=== PATIENT | male | born 1950 | race Caucasian/White ===

== ENCOUNTER 2020-12-29 16:46 | Inpatient (IN) | payer MEDICARE ==
[~2020-12-29] VITALS: Ht 177.8 cm; Wt 117.5 kg
[2020-12-29 16:48] VITALS: BP 176/64
[2020-12-29] MEDS ORDERED: ABILIFY 2 MG2 M1 PO (17:03)
[2020-12-29] MEDS ORDERED: PROTONIX40 M2 PO (17:03)
[2020-12-29] MEDS ORDERED: SINGULAIR 10 MG10 MG PO (17:04)
[2020-12-29] MEDS ORDERED: ENTRESTO 24 MG1 EACH PO (17:04)
[2020-12-29] MEDS ORDERED: HYDRALAZINE 2525 MG PO (17:04)
[2020-12-29] MEDS ORDERED: LEVEMIR FL100 UNIT/2 SUBQ (17:04)
[2020-12-29] MEDS ORDERED: LIPITOR40 MG PO (17:04)
[2020-12-29] MEDS ORDERED: CARAFATE 1 GM TA1 G1 PO (17:05)
[2020-12-29] MEDS ORDERED: IMDUR 30 MG TAB30 M1 PO (17:05)
[2020-12-29] MEDS ORDERED: MYRBETRIQ50 MG PO (17:05)
[2020-12-29] MEDS ORDERED: ELIQUIS5 MG PO (17:05)
[2020-12-29] MEDS ORDERED: FOLIC ACID1 MG PO (17:06)
[2020-12-29] MEDS ORDERED: NOVOLOG FL100 UNIT/M SUBQ (17:06)
[2020-12-29] MEDS ORDERED: PACERONE200 MG PO (17:06)
[2020-12-29] MEDS ORDERED: OXYCODONE HCL E10 MG PO (17:06)
[2020-12-29] MEDS ORDERED: LASIX 40 MG TAB40 MG PO (17:07)
[2020-12-29] MEDS ORDERED: CARVEDILOL25 MG PO (17:07)
[2020-12-29] MEDS ORDERED: ALLOPURINOL 30300 M1 PO (17:07)
[2020-12-29] MEDS ORDERED: CLONIDINE HCL0.1 M1 PO (17:07)
[2020-12-29] MEDS ORDERED: MAG-OXIDE400 MG PO (17:07)
[2020-12-29] MEDS ORDERED: NEURONTIN800 MG PO (17:08)
[2020-12-29 18:11] LABS: ABSOLUTE BASOPHILS 0.1 thou/uL (0.0-0.2); ABSOLUTE EOSINOPHILS 0.1 thou/uL (0.0-0.7); ABSOLUTE LYMPHOCYTES 0.8 thou/uL (0.8-5.3); ABSOLUTE MONOCYTES 0.8 thou/uL (0.0-1.2); ABSOLUTE NEUTROPHILS 12.7 thou/uL (1.6-8.1); BASOPHILS 0.5 %; EOSINOPHILS 0.4 %; HEMATOCRIT 37.1 % (42.0-52.0); HEMOGLOBIN 11.9 gm/dL (14.0-18.0); LYMPHOCYTES 5.3 %; MCH 26.5 pg (26.0-34.0); MCV 82.7 fL (80.0-100.0); MONOCYTES 5.4 %; MPV 7.8 fl. (7.2-11.1); NUCLEATED RBCS 0 /100WBC; PLATELET COUNT* 259 thou/uL (150-400); POLYS 88.4 %; RBC 4.49 mil/uL (4.50-6.00); RDW-CV 17.4 % (10.5-14.5); WBC 14.4 thou/uL (4.0-11.0)
[2020-12-29 18:21] LABS: CREATININE 1.7 mg/dL (0.6-1.3); POTASSIUM 4.1 mmol/L (3.5-5.1)
[2020-12-29 18:32] LABS: ALBUMIN 3.4 g/dL (3.4-5.0); MAGNESIUM 1.8 mg/dL (1.8-2.4); TOTAL BILIRUBIN 0.6 mg/dL (<0.1-1.0); TOTAL PROTEIN 7.2 g/dL (6.4-8.2)
[2020-12-29 19:50] VITALS: BP 159/76
[2020-12-29 20:00] VITALS: BP 161/77
[2020-12-30] VITALS (7 sets, daily range): BP systolic 140–179; BP diastolic 49–76
--- NOTE | 2020-12-30 04:14 | NUR ---
RECEIVED PT FROM ED AT APPROX 1955. PT IS AWAKE AND ORIENTED X4. PT IS NOT IN DISTRESS, NO DESATURATIONS NOTED ON 2L OF O2/NC. PT IS TRACING SR WITH 1st DEGREE AVB, AND PVCs. PT DENIES CHEST PAIN BUT HAS CHRONIC LEFT KNEE PAIN, PAIN MEDICATIONS GIVEN PER MAR WITH PARTIAL RELIEF. PT IS ADVISED ON ROOM SET UP AND ON THE USE OF CALL LIGHT. FALL PRECAUTIONS IN PLACE. HOURLY ROUNDING DONE FOR PT SAFETY.
--- NOTE | 2020-12-30 09:31 | EKG ---
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1950 Requested By: Aravind Fermin Order Number: [id number] MD: Diane Haines Measurements Intervals [place] Rate: 81 P: 99 CT: 258 QRS: 7 QRSD: 103 T: 58 QT: 410 QTc: 476 Interpretive Statements Sinus rhythm Prolonged CT interval Borderline low voltage, extremity leads Borderline prolonged QT interval No previous ECG available for comparison Electronically Signed On 12-30-2020 9:31:36 CDT by Diane Haines [email or web address] <ELECTRONICALLY SIGNED> By: Diane Haines MD, [facility] 12/30/20 0931 170 170 Diane Haines MD, [facility] /EPI
--- NOTE | 2020-12-30 17:24 | NUR ---
PT INDICATED HE LIVES AT HOME WITH . PT STATED HE IS INDEPENDENT WITH CARES. PT USES WALKER AND BREATHING TX. PT STATED HE USES 'S ELECTRIC W/C "WHEN I HAVE TO GO LONG DISTANCES." PT HAS HX WITH [facility] AND [facility]. PT HAS NO HX WITH SNF. PT IS CURRENTLY ON 2-3l OF O2. THE PLAN IS FOR OXIMETRY TEST PRIOR TO DC TO DETERMINE O2 NEEDS. CM TO CONT TO FOLLOW.
--- NOTE | 2020-12-30 18:27 | NUR ---
ASSUMED CARE OF PT AT 0730. PT A&0X4, PT COMPLAINED OF PAIN TO L KNEE AND BACK THIS AM-TREATED WITH SCHEDULED OXY WITH PARTIAL RELIEF. TRACING SR WITH PVC'S ON THE ICER MACHINE. ON 2L NC SAT MID 90'S. PT UP WITH SBA AND WALKER TO BATHROOM. AM ASSESSMENT CHARTED. MEDICATIONS PER AUG. PT REPOSITIONS SELF. HOURLY ROUNDING OBSERVED. BED IN LOW POSITION. CALL LIGHT WITHIN REACH. WILL CONTINUE PLAN OF CARE.
[2020-12-31 04:29] LABS: HEMATOCRIT 37.1 % (42.0-52.0); HEMOGLOBIN 11.8 gm/dL (14.0-18.0); MCHC 31.9 g/dL (28.0-37.0); MCV 81.6 fL (80.0-100.0); MPV 8.3 fl. (7.2-11.1); RBC 4.54 mil/uL (4.50-6.00); RDW-CV 17.5 % (10.5-14.5); WBC 23.9 thou/uL (4.0-11.0)
[2020-12-31 04:47] LABS: ANION GAP 6 mmol/L (7-16); BUN 30 mg/dL (7-18); CHLORIDE 98 mmol/L (98-107); CHOLESTEROL 134 mg/dL (<200); CO2 31 mmol/L (21-32); CREATININE 1.6 mg/dL (0.6-1.3); GLUCOSE 278 mg/dL (70-99); HDL CHOLESTEROL 37 mg/dL (>40); LDL CHOLESTEROL 86 mg/dL (<100); SODIUM 135 mmol/L (136-145); TC:HDL 3.6 Ratio (Not establshd); TRIGLYCERIDE 55 mg/dL (<150); VLDL 11 mg/dL (<40)
[2020-12-31 04:55] LABS: SERUM ASSESSMENT CLEAR
--- NOTE | 2020-12-31 05:13 | NUR ---
ASSUMED PT CARE AT APPROX 1930. PT IS AWAKE AND ORIENTED X4. PT IS NOT IN DISTRESS, NO DESATURATIONS NOTED ON ROOM AIR. PT IS TRACING SR w/ PVCs ON THE CARIDAC MONITOR. PT DENIES PAIN/CHEST DISCOMFORT. NO ACUTE CHANGES THIS SHIFT. HOURLY ROUNDING DONE FOR PT SAFETY. CALL LIGHT WITHIN REACH.
[2020-12-31 05:20] VITALS: BP 173/89
[2020-12-31 08:00] VITALS: BP 160/82
[2020-12-31 12:00] VITALS: BP 166/77
--- NOTE | 2020-12-31 15:21 | NUR ---
PLAN OF CARE: PHYSICIAN INFORMS OF PLAN FOR PT TO POSSIBLY D/C HOME TOMORROW, AND PT MAY NEED HOME OXYGEN PENDING R.T. REST AND EXERCISE TESTING. PT HAS PAST HX OF [facility] AND PT IS OPEN TO HH IF NEEDED AT D/C. CM WILL REMAIN AVAILABLE TO ASSIST AND FOLLOW NEEDED.
[2020-12-31 16:00] VITALS: BP 156/75
[2020-12-31 19:56] VITALS: BP 180/85
[2020-12-31 23:06] LABS: GLYCOHEMOGLOBIN (HGB A1C) 9.1 % (4.8-5.6)
[2021-01-01] VITALS (7 sets, daily range): BP systolic 160–197; BP diastolic 78–95
--- NOTE | 2021-01-01 04:30 | NUR ---
ASSUMED PT CARE AT APPROX. 1930. PT IS A&0X4. VSS. PT COMPLAINED OF PAIN TO L KNEE AND BACK. MEDICATIONS ADMINISTERED PRESCRIBED. SEE EMAR. PT IS TRACING SR 1D ON RESEARCH INTERVIEWER. PT IS ON RA. PT DENIES SOA. PT DENIES CHEST PAIN. PT USES URINAL AT BEDSIDE. PT UP TO BATHROOM W/ SBA AND WALKER. HOURLY ROUNDS COMPLETE CHARTED. ASSESSMENTS COMPLETED. FALL PRECAUTIONS IN PLACE FOR SAFETY. CALL LIGHT WITHIN REACH. WILL CONT. TO MONITOR.
[2021-01-01] MEDS ORDERED: DOXYCYCLINE 10100 MG PO (07:59)
--- NOTE | 2021-01-01 13:51 | NUR ---
PHYSICIAN INFORMS OF PLAN FOR THE PT TO D/C HOME TODAY WITH HH. PT INFORMS OF HH CHOICES OF [facility] OR [facility]. CM FAXED PT'S CLINCIAL INFO TO BOTH. [facility] ACCEPTED THE PT AND WILL CONTACT THE PT TO ARRANGE A TIME TO VISIT. R.T. INFORMS THIS CM THAT R.T. REST AND EXERCISE TESTING HAS BEEN CONPLETED AND PT DOES NOT NEED HOME OXYGEN. CM WILL REMAIN AVAILABLE TO ASSIST AND FOLLOW NEEDED.
--- NOTE | 2021-01-01 13:52 | NUR ---
ASSUMED PT CARE AT 0730, PT AOX4, C/O CHRONIC L KNEE PAIN TREATED W/ SCHEDULED PAIN MEDS. PT WORKED W/ CARDIOLOGY, ECHO COMPLETE, CM SET UP HH AND DC ORDERS RECEIVED. IV AND INTERNATIONAL ORGANIZER REMOVED. PT DC'D BY W/ NURSING STAFF AND ALL PAPERWORK AND PERSONAL BELONGINGS TO DAUGHTER'S VEHICLE AT APPROX 1352
--- NOTE | 2021-01-01 14:01 | 2DMMODE ---
[place] [address] 2 D/M-MODE ECHOCARDIOGRAM Name: DIANE FELICIANO Room: [address] IN [facility]#: [id number] Admission: 12/29/20 Attend Phys: Amber Pascal Discharge: 01/01/21 Date of : 54 Date of Service: 01/01/21 1401 Report #: [id number] THIS REPORT FOR: cc: Rashaun Ferris MD, Bruce D. MD Blick, David R. MD [facility] ~ APPROVED REPORT Study performed: 01/01/2021 12:02:37 EXAM: Comprehensive 2D, Doppler, and color-flow Echocardiogram Patient Location: In-Patient Room #: 222 Status: routine BSA: 2.33 HR: 73 bpm BP: 197/91 mmHg Rhythm: NSR Other Information Study Quality: Good Indications Congestive Heart Failure COPD 2D Dimensions IVSd: 16.09 (7-11mm) LVOT Diam: 20.53 (18-24mm) LVDd: 55.22 mm PWd: 12.91 (7-11mm) Ascending Ao: 33.20 (22-36mm) LVDs: 38.40 (25-40mm) Aortic Root: 31.88 mm Volumes Left Atrial Volume (Systole) LA ESV Index: 21.40 mL/m2 Aortic Valve AoV Peak Deion.: 1.43 m/s AO Peak Gr.: 8.18 mmHg LVOT Max P.86 mmHg AO Mean Gr.: 4.78 mmHg LVOT Mean P.23 mmHg LVOT Max V: 1.10 m/s AO V2 VTI: 26.95 cm LVOT Mean V: 0.67 m/s MIMI (VTI): 2.66 cm2 LVOT V1 VTI: 21.63 [place] [address] 2 D/M-MODE ECHOCARDIOGRAM Name: DIANE FELICIANO Room: [address]#: [id number] Admission: 12/29/20 Attend Phys: Amber Pascal Discharge: 01/01/21 Date of : 54 Date of Service: 01/01/21 1401 Report #: [id number] Mitral Valve E/A Ratio: 1.28 MV Decel. Time: 229.99 ms MV E Max Deion.: 0.96 m/s MV PHT: 66.70 ms MVA (PHT): 3.30 cm2 TDI E/Lateral E': 8.00 E/Medial E': 9.60 Medial E' Deion.: 0.10 m/s Lateral E' Deion.: 0.12 m/s Pulmonary Valve PV Peak Deion.: 1.34 m/s PV Peak Gr.: 7.16 mmHg Left Ventricle The left ventricle is normal size. There is normal LV segmental wall motion. Moderate septal hypertrophy is present. Left ventricular systolic function is normal. The left ventricular ejection fraction is within the normal range. LVEF is 55-60%. Grade IV - fixed restrictive diastolic dysfunction. Right Ventricle The right ventricle is normal size. The right ventricular systolic function is normal. Atria The left atrium size is normal. The right atrium size is normal. Aortic Valve The aortic valve is normal in structure. No aortic regurgitation is present. There is no aortic valvular stenosis. Mitral Valve The mitral valve is normal in structure. Trace mitral regurgitation. No evidence of mitral valve stenosis. Tricuspid Valve The tricuspid valve is normal in structure. Unable to assess PA pressure. Trace tricuspid regurgitation. Pulmonic Valve Pulmonic valve is not well visualized. There is no pulmonic [place] [address] 2 D/M-MODE ECHOCARDIOGRAM Name: DIANE FELICIANO Room: [address]#: [id number] Admission: 12/29/20 Attend Phys: Amber Pascal Discharge: 01/01/21 Date of : 54 Date of Service: 01/01/21 1401 Report #: [id number] Great Vessels The aortic root is normal in size. IVC is normal in size and collapses >50% with inspiration. Pericardium There is no pericardial effusion. <Conclusion> Moderate septal hypertrophy is present. LVEF is 55-60%. <ELECTRONICALLY SIGNED> By: Diane Haines MD, FACC 01/01/211400 00 00 Diane Haines MD, FACC /INF
== END 2021-01-01 13:52 | disposition home health service (06) | DRG 177 ==
LOC: M.ERS 16:46 → M.2W 17:55 → M.TBA-ER 17:55 → M.2W 19:29
PROVIDERS: Family Medicine; ADMIT Internal Medicine; ATTEND Internal Medicine
DX: J15.6 Pneumonia due to other Gram-negative bacteria (principal); J96.01 Acute respiratory failure with hypoxia; R65.11 Systemic inflammatory response syndrome (SIRS) of non-infectious origin with acute organ dysfunction; I50.23 Acute on chronic systolic (congestive) heart failure; J98.11 Atelectasis; N17.9 Acute kidney failure, unspecified; Z20.822 Contact with and (suspected) exposure to COVID-19; I25.10 Atherosclerotic heart disease of native coronary artery without angina pectoris; I48.91 Unspecified atrial fibrillation; E11.65 Type 2 diabetes mellitus with hyperglycemia; I45.81 Long QT syndrome; J43.9 Emphysema, unspecified; I25.2 Old myocardial infarction; Z79.899 Other long term (current) drug therapy

== ENCOUNTER 2021-01-21 17:33 | Inpatient (IN) | payer MEDICARE ==
[~2021-01-21] VITALS: Ht 177.8 cm; Wt 119.1 kg
[~2021-01-21 17:33] MED LIST: ABILIFY 2 MG2 M1 PO; ALLOPURINOL 30300 M1 PO; CARAFATE 1 GM TA1 G1 PO; CARVEDILOL25 MG PO; CLONIDINE HCL0.1 M1 PO; DOXYCYCLINE 10100 MG PO; ELIQUIS5 MG PO; ENTRESTO 24 MG1 EACH PO; FOLIC ACID1 MG PO; HYDRALAZINE 2525 MG PO; IMDUR 30 MG TAB30 M1 PO; LASIX 40 MG TAB40 MG PO; LEVEMIR FL100 UNIT/2 SUBQ; LIPITOR40 MG PO; MAG-OXIDE400 MG PO; MYRBETRIQ50 MG PO; NEURONTIN800 MG PO; NOVOLOG FL100 UNIT/M SUBQ; OXYCODONE HCL E10 MG PO; PACERONE200 MG PO; PROTONIX40 M2 PO; SINGULAIR 10 MG10 MG PO
[2021-01-21 17:34] VITALS: BP 200/83
[2021-01-21 19:06] LABS: HEMATOCRIT 37.8 % (42.0-52.0); HEMOGLOBIN 11.7 gm/dL (14.0-18.0); MCH 24.9 pg (26.0-34.0); MCV 80.2 fL (80.0-100.0); NUCLEATED RBCS 0 /100WBC; PLATELET COUNT* 287 thou/uL (150-400); RBC 4.71 mil/uL (4.50-6.00); WBC 14.2 thou/uL (4.0-11.0)
[2021-01-21 19:35] LABS: CALCIUM 8.6 mg/dL (8.5-10.1); CREATININE 1.4 mg/dL (0.6-1.3); POTASSIUM 3.8 mmol/L (3.5-5.1)
[2021-01-21 19:39] LABS: ALBUMIN 3.3 g/dL (3.4-5.0); MAGNESIUM 1.7 mg/dL (1.8-2.4); TOTAL BILIRUBIN 0.4 mg/dL (<0.1-1.0); TOTAL PROTEIN 7.1 g/dL (6.4-8.2)
[2021-01-21 19:56] LABS: ABSOLUTE MONOCYTES 0.6 thou/uL (0.0-1.2); ABSOLUTE NEUTROPHILS 12.6 thou/uL (1.6-8.1); ANISOCYTOSIS 1+; PLATELET ESTIMATE ADEQUATE
[2021-01-22] VITALS (7 sets, daily range): BP systolic 153–217; BP diastolic 78–93
--- NOTE | 2021-01-22 03:51 | NUR ---
PATIENT UP TO FLOOR VIA W/CHAIR TO ROOM 220. PT A/OX4; PLEASANT. PT SAID HE DOES NOT WEAR O2 AT HOME BUT IS ON 3L PER NC. PT USES A WALKER AT HOME. PT STANDS BY BEDSIDE TO VOID PER URINAL YELLOW URINE. PT SAYS HE IS ON LASIX AND IS VOIDING COPIOUS AMOUNTS OF CLEAR YELLOW URINE. PT WITH DIMINISHED LUNG SOUNDS. PT WITH CHRONIC BACK PAIN. PT WITH FLUIDS INFUSING IN LT FOREARM PER DR ORDER. FREQUENTLY USED ITEMS AND CALL LIGHT WITHIN REACH. SIDERAILS UPX2. WILL CONTINUE TO MONITOR.
--- NOTE | 2021-01-22 09:42 | EKG ---
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 : 1950 Requested By: Aravind Fermin Order Number: [id number] MD: Diane Haines Measurements Intervals [place] Rate: 134 P: TX: QRS: 10 QRSD: 124 T: 144 QT: 426 QTc: 636 Interpretive Statements Atrial fibrillation Nonspecific intraventricular conduction delay Artifact in lead(s) aVR,aVL,aVF,V1,V2,V5 Compared to ECG 12/29/2020 17:02:02 Intraventricular conduction delay now present Sinus rhythm no longer present Electronically Signed On 01-22-2021 9:42:08 CDT by Diane Haines [email or web address] <ELECTRONICALLY SIGNED> By: Diane Haines MD, [facility] 01/22/21 0942 08 08 Diane Haines MD, [facility] /EPI
--- NOTE | 2021-01-22 09:58 | NUR ---
CM ASSESSMENT: PT IS A READMIT AND IS KNOWN TO THIS CM FROM PREVIOUS ADMISSION. PT IS A&O, AND INDEPENDENT WITH ADL'S. PT RESIDES AT HOME ALONE. PT USES A WALKER FOR MOBILITY. NO OTHER DME. PT IS CURRENTLY ON-SERVICE WITH A HH, AND THEY INFORM OF ABILITY TO RESUME HH FOR THE PT AT D/C. PT HAS 0 HX OF SNF. CM WILL REMAIN AVAILABLE TO ASSIST AND FOLLOW NEEDED. [facility] PHONE: [phone] FAX: [phone]
[2021-01-23] VITALS: BP 168/82
--- NOTE | 2021-01-23 04:08 | NUR ---
PATIENT SLEPT WELL DURING THIS SHIFT. PT STANDS TO VOID PER URINAL. PT USES CALL LIGHT APROPRIATELY FOR ASSISTANCE TO BATHROOM. PT DENIES PAIN/NAUSEA AND IS ON ROOM AIR. IV SALINE LOCKED AND PATIENT. PT DENIES NEEDS AT THIS TIME. FREQUENTLY USED ITEMS AND CALL LIGHT WITHIN REACH. SIDERAILS UPX2. WILL CONTINUE TO MONITOR.
[2021-01-23 04:40] LABS: ABSOLUTE LYMPHOCYTES 0.9 thou/uL (0.8-5.3); ABSOLUTE MONOCYTES 0.3 thou/uL (0.0-1.2); ABSOLUTE NEUTROPHILS 16.3 thou/uL (1.6-8.1); HEMATOCRIT 38.1 % (42.0-52.0); HEMOGLOBIN 11.8 gm/dL (14.0-18.0); LYMPHOCYTES 5.1 %; MCH 24.9 pg (26.0-34.0); MCHC 31.1 g/dL (28.0-37.0); MONOCYTES 1.6 %; MPV 8.1 fl. (7.2-11.1); NUCLEATED RBCS 0 /100WBC; PLATELET COUNT* 321 thou/uL (150-400); POLYS 93.3 %; RBC 4.76 mil/uL (4.50-6.00); RDW-CV 17.7 % (10.5-14.5); WBC 17.5 thou/uL (4.0-11.0)
[2021-01-23 04:51] LABS: CALCIUM 8.8 mg/dL (8.5-10.1); CREATININE 1.5 mg/dL (0.6-1.3); POTASSIUM 3.7 mmol/L (3.5-5.1)
[2021-01-23 04:52] VITALS: BP 168/86
[2021-01-23 13:44] VITALS: BP 178/79
[2021-01-23 13:46] VITALS: BP 178/79
[2021-01-23 19:26] VITALS: BP 175/67
[2021-01-23 20:34] VITALS: BP 200/93
[2021-01-24] VITALS: BP 186/89
[2021-01-24 04:46] VITALS: BP 190/97
--- NOTE | 2021-01-24 04:56 | NUR ---
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
--- NOTE | 2021-01-24 07:36 | NUR ---
PT IS ABLE TO COMMUNICATE HIS NEEDS TO STAFF EFFECTIVELY. CURRENT PAIN MEDICATION REGIMEN HAS BEEN ADEQUATE FOR CONTROLLING HIS PAIN UP TO 0700 TODAY. POSSIBLE DISCHARGE TODAY.
[2021-01-24] MEDS ORDERED: CEFDINIR300 MG PO (10:22)
[2021-01-24] MEDS ORDERED: PREDNISONE 10 M10 MG PO (10:22)
[2021-01-24 11:28] VITALS: BP 174/85
[2021-01-24 11:37] VITALS: BP 174/85
--- NOTE | 2021-01-25 14:36 | NUR ---
[facility] from [facility] stating did not receive clinicals or HH orders. Faxed H&P, DC summary to [phone]
== END 2021-01-24 12:10 | disposition home health service (06) | DRG 291 ==
LOC: M.ERS 17:33 → M.2W 18:57 → M.TBA-ER 18:57 → M.2W 23:53
PROVIDERS: Family Medicine; ADMIT Internal Medicine; ATTEND Internal Medicine
DX: I13.0 Hypertensive heart and chronic kidney disease with heart failure and stage 1 through stage 4 chronic kidney disease, or unspecified chronic kidney disease (principal); I50.23 Acute on chronic systolic (congestive) heart failure; J96.21 Acute and chronic respiratory failure with hypoxia; J44.1 Chronic obstructive pulmonary disease with (acute) exacerbation; R65.10 Systemic inflammatory response syndrome (SIRS) of non-infectious origin without acute organ dysfunction; I48.91 Unspecified atrial fibrillation; I25.10 Atherosclerotic heart disease of native coronary artery without angina pectoris; N18.9 Chronic kidney disease, unspecified; E78.5 Hyperlipidemia, unspecified; E11.22 Type 2 diabetes mellitus with diabetic chronic kidney disease; I16.0 Hypertensive urgency; Z20.822 Contact with and (suspected) exposure to COVID-19; I25.2 Old myocardial infarction; Z98.1 Arthrodesis status; Z95.5 Presence of coronary angioplasty implant and graft; Z79.01 Long term (current) use of anticoagulants; Z79.4 Long term (current) use of insulin; Z79.899 Other long term (current) drug therapy; Z87.891 Personal history of nicotine dependence